=== PATIENT | female | born 1955 | race Caucasian/White ===

== ENCOUNTER 2017-03-24 10:02 | Emergency (ER) | payer BC, OTHER ==
[~2017-03-24] VITALS: Ht 170.2 cm; Wt 113.4 kg
[~2017-03-24 10:02] MED LIST: ATEN-60 PO; FURO20TA3 PO; MELO-86 PO
[2017-03-24 10:45] VITALS: BP 142/102
[2017-03-24] MEDS ORDERED: KETOROLAC TROMETH 60MG/2ML VIAL IM ONE (12:00)
== END 2017-03-24 13:04 | disposition home or self-care (01) ==
LOC: EDBD 10:02 → ER 10:02
DX: S83.92XA Sprain of unspecified site of left knee, initial encounter (principal); S46.911A Strain of unspecified muscle, fascia and tendon at shoulder and upper arm level, right arm, initial encounter; J45.909 Unspecified asthma, uncomplicated; I10 Essential (primary) hypertension; M19.90 Unspecified osteoarthritis, unspecified site; Z90.49 Acquired absence of other specified parts of digestive tract; Z90.710 Acquired absence of both cervix and uterus; W10.8XXA Fall (on) (from) other stairs and steps, initial encounter; Y93.01 Activity, walking, marching and hiking; Y99.8 Other external cause status; Y92.89 Other specified places as the place of occurrence of the external cause; Z88.6 Allergy status to analgesic agent; Z88.8 Allergy status to other drugs, medicaments and biological substances
CPT/HCPCS: 73110; 73562; 96372; 99284; J1885

== ENCOUNTER 2020-05-05 17:47 | Observation (INO) | payer OTHER, MEDICAID ==
[~2020-05-05] VITALS: Ht 170.2 cm; Wt 118.6 kg
[~2020-05-05 17:47] MED LIST changes: -MELO-86 PO; +MELO1TAB56 PO
[2020-05-05 21:00] LABS: Hemoglobin 12.2 g/dL (12.2-16.2); Monocytes # (auto) 0.5 10 ^3/uL (0-1.3); Neutrophils # (auto) 10.9 10 ^3/uL (1.6-8.6); Red Cell Distribution Width 18.5 % (11.8-14.3); White Blood Cell 11.9 10^3/uL (4.4-10.8)
[2020-05-05] MEDS ORDERED: PIPERACILLIN-TAZO 4.5GM 100 ML IV ONE (21:00)
[2020-05-05] MEDS ORDERED: LACTATED RINGER'S 1,000 ML IV ONE (21:00)
[2020-05-05] MEDS ORDERED: HYDROcodone-ACET 10/325MG TAB PO ONE (21:00)
[2020-05-05] MEDS ORDERED: ACETAMINOPHEN 325 MG TAB PO ONE (21:00)
[2020-05-05] MEDS ORDERED: dilTIAZem 25 MG/5 ML VIAL IV ONE ×2 (21:00→21:45)
[2020-05-05 21:02] LABS: Basophils # (auto) 0.1 10 ^3/uL (0-0.2); Basophils % (auto) 0.6 % (0.0-2.0); Eosinophils # (auto) 0 10 ^3/uL (0-0.8); Eosinophils % (auto) 0.1 % (0.0-7.0); Hematocrit 37.4 % (36.0-46.0); Lymphocytes # (auto) 0.3 10 ^3/uL (0.4-5.4); Lymphocytes % (auto) 2.8 % (10.0-50.0); Mean Corpuscular Hemoglobin 26.8 pg (28.0-32.0); Mean Corpuscular Hgb Conc. 32.7 g/dL (32.0-36.0); Monocytes % (auto) 4.2 % (0.0-12.0); Neutrophils % (auto) 92.3 % (37.0-80.0); Nucleated Red Blood Cells % 0.1 %; Platelet Count (auto) 181 10^3/uL (140-450); Red Blood Cells 4.56 10^6/uL (4.0-5.20)
[2020-05-05 21:09] LABS: Urine Bacteria MANY /hpf (None Seen); Urine Blood 1+ /uL (Negative); Urine Hyaline Cast FEW /lpf (0 - 2); Urine Mucus FEW (None Seen); Urine Specific Gravity 1.016 (1.001-1.035); Urine WBC 655 /hpf (0 - 5); Urine WBC Clumps PRESENT /hpf (None Seen)
[2020-05-05 21:26] LABS: Albumin 2.5 g/dL (3.4-5.0); Calcium 8.7 mg/dL (8.5-10.1); Magnesium 1.5 mg/dL (1.6-2.6); Potassium 3.3 mmol/L (3.5-5.1)
[2020-05-05 21:30] LABS: BUN/Creatinine Ratio 20.3; Bilirubin, Total 1.6 mg/dL (0.2-1.0); Total Protein 6.6 g/dL (6.4-8.2)
[2020-05-05 21:32] LABS: INR 1.18 (0.9-1.15); Partial Thromboplastin Time 25.4 sec (23.0-31.2)
[2020-05-05 21:36] LABS: Lactate Dehydrogenase 247 U/L (84-246)
[2020-05-05 21:37] LABS: CRP High Sensitivity > 19.0 mg/dL (< 0.3)
[2020-05-05] MEDS ORDERED: POTASSIUM EFFERVESENT TAB 25 MEQ PO ONE (22:45)
[2020-05-05] MEDS ORDERED: ENOXAPARIN SOD 120 MG/0.8 ML SYRINGE SC ONE (23:00)
[2020-05-05] MEDS ORDERED: KETOROLAC TROMETH 30 MG/ML 1ML VIAL IV ONE (23:00)
[2020-05-05] MEDS: MAGNESIUM SULFATE 1GM/100ML 100 ML IV SCH (23:44)
[2020-05-06] MEDS ORDERED: SODIUM CHLORIDE 0.9% 1,000 ML IV ONE
[2020-05-06] MEDS ORDERED: NITROGLYCERIN 0.4 MG SL TAB SL PRN
[2020-05-06] MEDS: MAGNESIUM SULFATE 1GM/100ML 100 ML IV SCH (00:48)
[2020-05-06] MEDS ORDERED: ACETAMINOPHEN 500 MG TAB PO ONE ×2 (05:15→11:45)
[2020-05-06 07:10] LABS: Basophils # (auto) 0 10 ^3/uL (0-0.2); Basophils % (auto) 0.2 % (0.0-2.0); Eosinophils # (auto) 0 10 ^3/uL (0-0.8); Hemoglobin 11.8 g/dL (12.2-16.2); Lymphocytes # (auto) 0.2 10 ^3/uL (0.4-5.4); Monocytes # (auto) 0.3 10 ^3/uL (0-1.3); White Blood Cell 7.5 10^3/uL (4.4-10.8)
[2020-05-06 07:15] LABS: Eosinophils % (auto) 0.2 % (0.0-7.0); Hematocrit 35.7 % (36.0-46.0); Lymphocytes % (auto) 2.6 % (10.0-50.0); Mean Corpuscular Volume 81.7 fL (80.0-100.0); Monocytes % (auto) 3.7 % (0.0-12.0); Neutrophils % (auto) 93.3 % (37.0-80.0); Platelet Count (auto) 161 10^3/uL (140-450); Red Blood Cells 4.37 10^6/uL (4.0-5.20)
[2020-05-06 07:27] LABS: Albumin 2.1 g/dL (3.4-5.0); Calcium 8.3 mg/dL (8.5-10.1); Potassium 3.7 mmol/L (3.5-5.1)
[2020-05-06 07:30] LABS: BUN/Creatinine Ratio 21.8; Bilirubin, Total 1.7 mg/dL (0.2-1.0); Total Protein 5.8 g/dL (6.4-8.2)
[2020-05-06] MEDS: PIPERACILLIN-TAZOB 3.375GM 100 ML IV SCH ×3 (07:48→18:44)
[2020-05-06] MEDS: ENOXAPARIN SOD 40 MG/0.4 ML SYRINGE SC SCH ×2 (09:59→22:07)
[2020-05-06] MEDS ORDERED: levoFLOXacin 500MG 100 ML IV SCH (10:00)
[2020-05-06] MEDS ORDERED: ACETAMINOPHEN 500 MG TAB PO PRN (11:45)
[2020-05-06 13:49] VITALS: BP 131/52
[2020-05-06] MEDS ORDERED: ALPR0.25 PO (16:08)
[2020-05-06 16:49] VITALS: BP 161/68
[2020-05-06] MEDS ORDERED: hydrALAZINE HCL 20 MG/ML VL IV PRN (18:00)
[2020-05-06] MEDS ORDERED: ALPRAZolam 0.25 MG TAB PO PRN (18:00)
[2020-05-06] MEDS: HYDROcodone-ACET 10/325MG TAB PO PRN (18:40)
[2020-05-06] MEDS: ONDANSETRON HCL 4 MG/2 ML VIAL IV PRN (18:44)
[2020-05-06 20:00] VITALS: BP 124/63
[2020-05-06 22:00] VITALS: BP 124/63
[2020-05-06] MEDS: METOPROLOL TARTRATE 25 MG TAB PO SCH (22:08)
[2020-05-07] MEDS: PIPERACILLIN-TAZOB 3.375GM 100 ML IV SCH ×3 (00:49→12:13)
[2020-05-07] MEDS: HYDROcodone-ACET 10/325MG TAB PO PRN (02:00)
[2020-05-07 05:00] VITALS: BP 130/50
[2020-05-07] MEDS: ONDANSETRON HCL 4 MG/2 ML VIAL IV PRN (07:17)
[2020-05-07] MEDS: METOPROLOL TARTRATE 25 MG TAB PO SCH (08:05)
[2020-05-07 09:00] VITALS: BP 139/47
[2020-05-07 09:39] LABS: Basophils # (auto) 0 10 ^3/uL (0-0.2); Eosinophils # (auto) 0 10 ^3/uL (0-0.8); Eosinophils % (auto) 0.4 % (0.0-7.0); Lymphocytes # (auto) 0.2 10 ^3/uL (0.4-5.4); Monocytes # (auto) 0.2 10 ^3/uL (0-1.3); Red Cell Distribution Width 18.9 % (11.8-14.3)
[2020-05-07 09:41] LABS: Basophils % (auto) 0.7 % (0.0-2.0); Hematocrit 31.9 % (36.0-46.0); Hemoglobin 10.6 g/dL (12.2-16.2); Lymphocytes % (auto) 5.4 % (10.0-50.0); Mean Corpuscular Hemoglobin 27.2 pg (28.0-32.0); Mean Corpuscular Hgb Conc. 33.2 g/dL (32.0-36.0); Mean Corpuscular Volume 81.8 fL (80.0-100.0); Monocytes % (auto) 4.9 % (0.0-12.0); Neutrophils # (auto) 3.4 10 ^3/uL (1.6-8.6); Neutrophils % (auto) 88.6 % (37.0-80.0); Platelet Count (auto) 150 10^3/uL (140-450); White Blood Cell 3.8 10^3/uL (4.4-10.8)
[2020-05-07 09:55] LABS: Calcium 8.3 mg/dL (8.5-10.1); Potassium 3.6 mmol/L (3.5-5.1)
[2020-05-07 09:58] LABS: Albumin 1.7 g/dL (3.4-5.0); BUN/Creatinine Ratio 18.2
[2020-05-07 10:04] LABS: Bilirubin, Total 1.1 mg/dL (0.2-1.0); Total Protein 5.4 g/dL (6.4-8.2)
[2020-05-07 13:00] VITALS: BP 135/62
[2020-05-07] MEDS ORDERED: ALBUTEROL SULF 2.5 MG/0.5ML(0.5%) NEB SOLN NEB PRN (13:15)
[2020-05-07 16:57] VITALS: BP 135/62
[2020-05-07] MEDS ORDERED: RIVAROXABAN 20 MG TAB PO SCH (18:00)
== END 2020-05-07 18:15 | disposition home or self-care (01) ==
LOC: ER 17:47 → EDBD 17:47 → UNDOADMOB 23:56 → TELE 23:56 → TELE-WESTW 05-06 13:00 → TELE 05-06 13:00 → TELE-WESTW 05-07 01:52 → UNDODISOB 05-07 18:15
PROVIDERS: ADMIT Internal Medicine; ATTEND Internal Medicine
DX: A41.9 Sepsis, unspecified organism (principal); Z20.828 Contact with and (suspected) exposure to other viral communicable diseases; R05 Cough; N39.0 Urinary tract infection, site not specified; I48.91 Unspecified atrial fibrillation; M19.90 Unspecified osteoarthritis, unspecified site; D84.9 Immunodeficiency, unspecified; E11.9 Type 2 diabetes mellitus without complications; E66.01 Morbid (severe) obesity due to excess calories; I11.0 Hypertensive heart disease with heart failure; I50.9 Heart failure, unspecified; J45.909 Unspecified asthma, uncomplicated; Z85.3 Personal history of malignant neoplasm of breast; Z85.118 Personal history of other malignant neoplasm of bronchus and lung; Z90.710 Acquired absence of both cervix and uterus; Z79.01 Long term (current) use of anticoagulants; Z79.899 Other long term (current) drug therapy; Z88.5 Allergy status to narcotic agent; Z88.8 Allergy status to other drugs, medicaments and biological substances; Z68.41 Body mass index [BMI] 40.0-44.9, adult
CPT/HCPCS: 36415; 71045; 80053; 81001; 82728; 83605; 83615; 83735; 83880; 84484; 85025; 85379; 85610; 85730; 86141; 87040; 87077; 87086; 87088; 87186; 87426; 93005; 93306; 94640; 96365; 96366; 96368; 96372; 96375; 96376; 99291; G0378; J0360; J1650; J1885; J2405; J2543; J3475; J7030; U0003

== ENCOUNTER 2020-08-11 14:59 | Emergency (ER) | payer MEDICAID, OTHER ==
[~2020-08-11] VITALS: Ht 160 cm; Wt 136.1 kg
[~2020-08-11 14:59] MED LIST changes: +ALPR0.25 PO
[2020-08-11] MEDS ORDERED: MORPHINE SULFATE 4 MG/ML SYR/VIAL IV ONE (15:15)
[2020-08-11] MEDS ORDERED: HYDROmorphone HCL 2 MG/ML VL IV ONE (15:15)
[2020-08-11] MEDS ORDERED: ONDANSETRON HCL 4 MG/2 ML VIAL IV ONE (15:15)
[2020-08-11 16:14] LABS: Eosinophils # (auto) 0.1 10 ^3/uL (0-0.8); Eosinophils % (auto) 1.4 % (0.0-7.0); Hemoglobin 10.8 g/dL (12.2-16.2); Lymphocytes # (auto) 1.4 10 ^3/uL (0.4-5.4); Monocytes # (auto) 0.7 10 ^3/uL (0-1.3)
[2020-08-11 16:16] LABS: Basophils # (auto) 0.1 10 ^3/uL (0-0.2); Basophils % (auto) 0.9 % (0.0-2.0); Hematocrit 33.1 % (36.0-46.0); Lymphocytes % (auto) 15.6 % (10.0-50.0); Mean Corpuscular Hemoglobin 26.9 pg (28.0-32.0); Mean Corpuscular Hgb Conc. 32.6 g/dL (32.0-36.0); Mean Corpuscular Volume 82.5 fL (80.0-100.0); Monocytes % (auto) 7.9 % (0.0-12.0); Neutrophils # (auto) 6.7 10 ^3/uL (1.6-8.6); Neutrophils % (auto) 74.2 % (37.0-80.0); Platelet Count (auto) 436 10^3/uL (140-450); Red Blood Cells 4.02 10^6/uL (4.0-5.20); Red Cell Distribution Width 16.1 % (11.8-14.3)
[2020-08-11 18:09] LABS: Anion Gap 7 (5-15); BUN/Creatinine Ratio 18.1; Blood Urea Nitrogen 15 mg/dL (7-18); Carbon Dioxide 26 mmol/L (21-32); Chloride 106 mmol/L (98-107); GFR African American 88 mL/min; GFR Non-African American 73 mL/min; Glucose 88 mg/dL (74-106); Potassium 3.4 mmol/L (3.5-5.1); Sodium 139 mmol/L (136-145)
[2020-08-11 18:10] LABS: Alanine Aminotransferase 17 U/L (13-56); Albumin 2.6 g/dL (3.4-5.0); Alkaline Phosphatase 88 U/L (45-117); Aspartate Aminotransferase 17 U/L (15-37); Bilirubin, Total 0.4 mg/dL (0.2-1.0); Calcium 8.6 mg/dL (8.5-10.1); Total Protein 6.9 g/dL (6.4-8.2)
[2020-08-11 18:37] VITALS: BP 136/42
[2020-08-11 21:26] LABS: Urine Bacteria NONE SEEN /hpf (None Seen); Urine Blood 2+ /uL (Negative); Urine Hyaline Cast FEW /lpf (0 - 2); Urine Mucus FEW (None Seen); Urine Specific Gravity 1.021 (1.001-1.035); Urine WBC 6 /hpf (0 - 5)
== END 2020-08-11 18:31 | disposition home or self-care (01) ==
LOC: ER 14:59 → EDBD 14:59 → ER 18:31
DX: I21.9 Acute myocardial infarction, unspecified (principal); I10 Essential (primary) hypertension; Z90.49 Acquired absence of other specified parts of digestive tract; Z90.710 Acquired absence of both cervix and uterus; Z79.899 Other long term (current) drug therapy; Z88.5 Allergy status to narcotic agent; Z88.8 Allergy status to other drugs, medicaments and biological substances
CPT/HCPCS: 36415; 71045; 80053; 81001; 83880; 84484; 85025; 85379; 93005; 96374; 99285; J2405

== ENCOUNTER 2020-09-17 11:44 | Emergency (ER) | payer OTHER ==
[~2020-09-17] VITALS: Ht 170.2 cm; Wt 115.7 kg
[2020-09-17 12:14] LABS: Eosinophils # (auto) 0.1 10 ^3/uL (0-0.8); Lymphocytes # (auto) 1.4 10 ^3/uL (0.4-5.4); Monocytes # (auto) 0.5 10 ^3/uL (0-1.3); Red Blood Cells 3.39 10^6/uL (4.0-5.20)
[2020-09-17 12:16] LABS: Basophils # (auto) 0.1 10 ^3/uL (0-0.2); Basophils % (auto) 1.1 % (0.0-2.0); Hematocrit 26.2 % (36.0-46.0); Hemoglobin 8.2 g/dL (12.2-16.2); Lymphocytes % (auto) 15.1 % (10.0-50.0); Mean Corpuscular Hemoglobin 24.3 pg (28.0-32.0); Mean Corpuscular Hgb Conc. 31.4 g/dL (32.0-36.0); Mean Corpuscular Volume 77.3 fL (80.0-100.0); Monocytes % (auto) 5.5 % (0.0-12.0); Neutrophils # (auto) 7.2 10 ^3/uL (1.6-8.6); Neutrophils % (auto) 77.3 % (37.0-80.0); Red Cell Distribution Width 16.9 % (11.8-14.3); White Blood Cell 9.4 10^3/uL (4.4-10.8)
[2020-09-17 12:28] VITALS: BP 125/81
[2020-09-17 12:35] LABS: Alanine Aminotransferase 16 U/L (13-56); Albumin 2.6 g/dL (3.4-5.0); Anion Gap 10 (5-15); Aspartate Aminotransferase 15 U/L (15-37); BUN/Creatinine Ratio 20.2; Blood Urea Nitrogen 20 mg/dL (7-18); Calcium 8.6 mg/dL (8.5-10.1); Carbon Dioxide 26 mmol/L (21-32); Chloride 104 mmol/L (98-107); GFR African American 72 mL/min; GFR Non-African American 59 mL/min; Glucose 96 mg/dL (74-106); Magnesium 1.8 mg/dL (1.6-2.6); Potassium 3.1 mmol/L (3.5-5.1); Sodium 140 mmol/L (136-145)
[2020-09-17 12:40] LABS: Alkaline Phosphatase 87 U/L (45-117); Bilirubin, Total 0.5 mg/dL (0.2-1.0); Total Protein 6.9 g/dL (6.4-8.2)
[2020-09-17 14:48] LABS: Urine Bacteria FEW /hpf (None Seen); Urine Blood TRACE /uL (Negative); Urine WBC 14 /hpf (0 - 5)
[2020-09-17] MEDS ORDERED: cefTRIAXone 1GM/50ML D5W 50 ML IV ONE (15:30)
[2020-09-17] MEDS ORDERED: cefTRIAXone SOD 1,000 MG VL ONE (15:38)
== END 2020-09-17 17:19 | disposition home or self-care (01) ==
LOC: ER 11:44 → EDBD 11:44 → ER 17:19
DX: R07.89 Other chest pain (principal); R00.2 Palpitations; J45.909 Unspecified asthma, uncomplicated; R42 Dizziness and giddiness; Z88.6 Allergy status to analgesic agent; Z90.49 Acquired absence of other specified parts of digestive tract; Z90.710 Acquired absence of both cervix and uterus
CPT/HCPCS: 36415; 71045; 80053; 81001; 83735; 83880; 84484; 85025; 85379; 93005; 96365; 99285; J0696

== ENCOUNTER 2020-11-09 09:47 | Inpatient (IN) | payer OTHER ==
[~2020-11-09] VITALS: Ht 170.2 cm; Wt 121.8 kg
[2020-11-09] MEDS ORDERED: SODIUM CHLORIDE 0.9% 1,000 ML IV ONE (10:15)
[2020-11-09 10:52] LABS: Basophils # (auto) 0.1 10 ^3/uL (0-0.2); Eosinophils # (auto) 0.2 10 ^3/uL (0-0.8); Eosinophils % (auto) 2.7 % (0.0-7.0); Lymphocytes # (auto) 1.1 10 ^3/uL (0.4-5.4); Monocytes # (auto) 0.5 10 ^3/uL (0-1.3)
[2020-11-09 10:54] LABS: Basophils % (auto) 1.1 % (0.0-2.0); Hematocrit 20.7 % (36.0-46.0); Lymphocytes % (auto) 16.2 % (10.0-50.0); Mean Corpuscular Hemoglobin 19.9 pg (28.0-32.0); Mean Corpuscular Hgb Conc. 28.3 g/dL (32.0-36.0); Mean Corpuscular Volume 70.2 fL (80.0-100.0); Monocytes % (auto) 7.8 % (0.0-12.0); Neutrophils % (auto) 72.2 % (37.0-80.0); Nucleated Red Blood Cells % 0.4 %; Platelet Count (auto) 425 10^3/uL (140-450); Red Blood Cells 2.95 10^6/uL (4.0-5.20); White Blood Cell 6.9 10^3/uL (4.4-10.8)
[2020-11-09 10:57] LABS: Hemoglobin 5.9 g/dL (12.2-16.2)
[2020-11-09 11:09] LABS: Urine Bacteria FEW /hpf (None Seen); Urine Blood Negative /uL (Negative); Urine Specific Gravity 1.012 (1.001-1.035); Urine WBC 29 /hpf (0 - 5)
[2020-11-09 11:10] LABS: Alanine Aminotransferase 15 U/L (13-56); Albumin 2.5 g/dL (3.4-5.0); Anion Gap 5 (5-15); Aspartate Aminotransferase 16 U/L (15-37); Blood Urea Nitrogen 12 mg/dL (7-18); Calcium 8.7 mg/dL (8.5-10.1); Carbon Dioxide 27 mmol/L (21-32); Chloride 106 mmol/L (98-107); Glucose 114 mg/dL (74-106); Potassium 3.9 mmol/L (3.5-5.1); Sodium 138 mmol/L (136-145)
[2020-11-09 11:12] LABS: INR 1.34 (0.9-1.15); Partial Thromboplastin Time 31.4 sec (23.0-31.2)
[2020-11-09 11:14] LABS: Alkaline Phosphatase 76 U/L (45-117); Bilirubin, Total 0.5 mg/dL (0.2-1.0); GFR African American 78 mL/min; GFR Non-African American 65 mL/min; Total Protein 6.4 g/dL (6.4-8.2)
[2020-11-09] MEDS ORDERED: NITROGLYCERIN 0.4 MG SL TAB SL PRN (15:30)
[2020-11-09] MEDS ORDERED: PANTOPRAZOLE 40mg/50ML NS AE 50 ML IV ONE (15:30)
[2020-11-09] MEDS ORDERED: MORPHINE SULF INJ 2 MG/ML SYRINGE 1ML IV PRN (15:30)
[2020-11-09 18:40] VITALS: BP 154/62
[2020-11-09] MEDS ORDERED: ALPR0.5T PO (19:11)
[2020-11-09] MEDS ORDERED: SERT25TA84 PO (19:11)
[2020-11-09] MEDS ORDERED: METO25TA5 PO (19:11)
[2020-11-09] MEDS ORDERED: LOSA-69 PO (19:11)
[2020-11-09] MEDS ORDERED: RIVA20TA PO (19:11)
[2020-11-09 22:00] VITALS: BP 152/57
[2020-11-09 23:29] LABS: Hematocrit 23.2 % (36.0-46.0)
[2020-11-09] MEDS: ALPRAZolam 0.5 MG TAB PO PRN (23:33)
[2020-11-10] VITALS (10 sets, daily range): BP systolic 134–156; BP diastolic 47–80
[2020-11-10 06:17] LABS: Hematocrit 23.4 % (36.0-46.0); Hemoglobin 7.3 g/dL (12.2-16.2)
[2020-11-10 06:26] LABS: Albumin 2.5 g/dL (3.4-5.0); Calcium 8.1 mg/dL (8.5-10.1); Potassium 3.8 mmol/L (3.5-5.1)
[2020-11-10 06:30] LABS: BUN/Creatinine Ratio 11.8; Bilirubin, Total 0.7 mg/dL (0.2-1.0); Total Protein 5.8 g/dL (6.4-8.2)
[2020-11-10] MEDS ORDERED: NITROGLYCERIN 0.4 MG SL TAB SL PRN (10:45)
[2020-11-10 15:14] LABS: Hemoglobin 7.5 g/dL (12.2-16.2)
[2020-11-10 15:16] LABS: Hematocrit 24.7 % (36.0-46.0)
[2020-11-10] MEDS: ALPRAZolam 0.5 MG TAB PO PRN (22:18)
[2020-11-11] VITALS (11 sets, daily range): BP systolic 133–164; BP diastolic 53–71
[2020-11-11 05:30] LABS: Basophils # (auto) 0 10 ^3/uL (0-0.2); Eosinophils # (auto) 0.2 10 ^3/uL (0-0.8); Lymphocytes # (auto) 1.2 10 ^3/uL (0.4-5.4); Mean Corpuscular Hemoglobin 22.7 pg (28.0-32.0); Neutrophils # (auto) 3.3 10 ^3/uL (1.6-8.6); Nucleated Red Blood Cells % 0.3 %
[2020-11-11 05:32] LABS: Eosinophils % (auto) 3.8 % (0.0-7.0); Hematocrit 22.2 % (36.0-46.0); Lymphocytes % (auto) 23.3 % (10.0-50.0); Mean Corpuscular Hgb Conc. 31.4 g/dL (32.0-36.0); Mean Corpuscular Volume 72.1 fL (80.0-100.0); Monocytes # (auto) 0.4 10 ^3/uL (0-1.3); Monocytes % (auto) 8.5 % (0.0-12.0); Neutrophils % (auto) 63.4 % (37.0-80.0); Platelet Count (auto) 373 10^3/uL (140-450); Red Blood Cells 3.08 10^6/uL (4.0-5.20); White Blood Cell 5.2 10^3/uL (4.4-10.8)
[2020-11-11 05:44] LABS: Albumin 2.5 g/dL (3.4-5.0); Calcium 8.2 mg/dL (8.5-10.1); Potassium 3.7 mmol/L (3.5-5.1)
[2020-11-11 05:46] LABS: BUN/Creatinine Ratio 8.4
[2020-11-11 05:48] LABS: Bilirubin, Total 0.7 mg/dL (0.2-1.0); Total Protein 5.7 g/dL (6.4-8.2)
[2020-11-11 06:21] LABS: Red Cell Distribution Width 23.7 % (11.8-14.3)
[2020-11-11] MEDS ORDERED: GOLYTELY 4L KIT PO ONE (09:45)
[2020-11-11] MEDS ORDERED: ALPRAZolam 0.5 MG TAB PO PRN (10:45)
[2020-11-11] MEDS: HYDROcodone-ACET 5/325MG TAB PO PRN (15:17)
[2020-11-11] MEDS: PANTOPRAZOLE 40 MG/10 ML VIAL INJ IV SCH (22:01)
[2020-11-12] VITALS (10 sets, daily range): BP systolic 121–155; BP diastolic 33–87
[2020-11-12 07:50] LABS: Albumin 2.5 g/dL (3.4-5.0); BUN/Creatinine Ratio 7.3; Calcium 8.3 mg/dL (8.5-10.1); Potassium 3.7 mmol/L (3.5-5.1)
[2020-11-12 08:05] LABS: Total Protein 5.9 g/dL (6.4-8.2)
[2020-11-12] MEDS: PANTOPRAZOLE 40 MG/10 ML VIAL INJ IV SCH ×2 (09:58→22:58)
[2020-11-12] MEDS ORDERED: ONDANSETRON HCL 4 MG/2 ML VIAL IV PRN ×2 (10:00→11:30)
[2020-11-12] MEDS ORDERED: fentaNYL CITRATE 100 MCG/2 ML VL ONE (10:49)
[2020-11-12] MEDS ORDERED: MIDAZOLAM HCL 1MG/1ML-2 ML VIAL ONE (10:50)
[2020-11-12] MEDS ORDERED: LIDOCAINE 2% (LOCAL ANESTH.) PF 5ml SDV ONE (10:50)
[2020-11-12] MEDS ORDERED: PROPOFOL 10 MG/ML 20 ML IV ONE (10:50)
[2020-11-12] MEDS ORDERED: ONDANSETRON HCL 4 MG/2 ML VIAL ONE (10:50)
[2020-11-12 15:04] LABS: Hematocrit 30.3 % (36.0-46.0)
[2020-11-12] MEDS ORDERED: HYDROCORTISONE ACET 25 MG RECTAL SUPP PR SCH (18:00)
[2020-11-12 22:01] LABS: Basophils # (auto) 0.1 10 ^3/uL (0-0.2); Basophils % (auto) 1.1 % (0.0-2.0); Eosinophils # (auto) 0.2 10 ^3/uL (0-0.8); Eosinophils % (auto) 2.8 % (0.0-7.0); Hematocrit 29.1 % (36.0-46.0); Hemoglobin 9.1 g/dL (12.2-16.2); Lymphocytes # (auto) 0.9 10 ^3/uL (0.4-5.4); Lymphocytes % (auto) 12.8 % (10.0-50.0); Mean Corpuscular Hemoglobin 23.5 pg (28.0-32.0); Mean Corpuscular Hgb Conc. 31.1 g/dL (32.0-36.0); Mean Corpuscular Volume 75.5 fL (80.0-100.0); Monocytes # (auto) 0.6 10 ^3/uL (0-1.3); Monocytes % (auto) 8.3 % (0.0-12.0); Neutrophils # (auto) 5.5 10 ^3/uL (1.6-8.6); Nucleated Red Blood Cells % 0.1 %; Platelet Count (auto) 337 10^3/uL (140-450); Red Blood Cells 3.85 10^6/uL (4.0-5.20); White Blood Cell 7.3 10^3/uL (4.4-10.8)
[2020-11-12 22:03] LABS: Red Cell Distribution Width 24.3 % (11.8-14.3)
[2020-11-12] MEDS: HYDROcodone-ACET 5/325MG TAB PO PRN (22:58)
[2020-11-13 04:46] VITALS: BP 107/49
[2020-11-13 04:47] VITALS: BP 113/48
[2020-11-13 06:45] LABS: Basophils # (auto) 0.1 10 ^3/uL (0-0.2); Basophils % (auto) 1.3 % (0.0-2.0); Eosinophils # (auto) 0.3 10 ^3/uL (0-0.8); Eosinophils % (auto) 4.3 % (0.0-7.0); Hematocrit 27.6 % (36.0-46.0); Hemoglobin 8.5 g/dL (12.2-16.2); Lymphocytes # (auto) 1.3 10 ^3/uL (0.4-5.4); Mean Corpuscular Hemoglobin 23.5 pg (28.0-32.0); Mean Corpuscular Hgb Conc. 30.8 g/dL (32.0-36.0); Mean Corpuscular Volume 76.1 fL (80.0-100.0); Monocytes # (auto) 0.6 10 ^3/uL (0-1.3); Neutrophils # (auto) 3.7 10 ^3/uL (1.6-8.6); Neutrophils % (auto) 62.4 % (37.0-80.0); Nucleated Red Blood Cells % 0.2 %; Platelet Count (auto) 340 10^3/uL (140-450); Red Blood Cells 3.63 10^6/uL (4.0-5.20); Red Cell Distribution Width 24.3 % (11.8-14.3); White Blood Cell 5.9 10^3/uL (4.4-10.8)
[2020-11-13 06:48] LABS: Albumin 2.2 g/dL (3.4-5.0)
[2020-11-13 06:56] LABS: Calcium 7.7 mg/dL (8.5-10.1); Total Protein 5.6 g/dL (6.4-8.2)
[2020-11-13] MEDS ORDERED: HYDROCORTISONE 2.5% TOPICAL CREAM 30GM TUBE PR ONE (07:45)
[2020-11-13 08:55] VITALS: BP 128/62
[2020-11-13] MEDS: PANTOPRAZOLE 40 MG/10 ML VIAL INJ IV SCH (09:50)
[2020-11-13] MEDS ORDERED: LOSARTAN POTASSIUM 50 MG TAB PO SCH (10:00)
[2020-11-13] MEDS ORDERED: FUROSEMIDE 20 MG TAB PO SCH (10:00)
[2020-11-13] MEDS ORDERED: ATENOLOL 25 MG TAB PO SCH (10:00)
== END 2020-11-13 10:20 | disposition home or self-care (01) | DRG 393 ==
LOC: EDBD 09:47 → ER 09:47 → INTOOBSV 15:17 → TELE 15:17 → TELE-CENTR 18:07 → OBSVTOIN 11-10 10:35
PROVIDERS: ADMIT Hospitalist; ATTEND Hospitalist
PROC: 30233N1 Transfusion of Nonautologous Red Blood Cells into Peripheral Vein, Percutaneous Approach (ICD-10-PCS; 2020-11-09)
PROC: 05HF33Z Insertion of Infusion Device into Left Cephalic Vein, Percutaneous Approach (ICD-10-PCS; 2020-11-09)
PROC: B54NZZA Ultrasonography of Left Upper Extremity Veins, Guidance (ICD-10-PCS; 2020-11-09)
PROC: 0DBH8ZX Excision of Cecum, Via Natural or Artificial Opening Endoscopic, Diagnostic (ICD-10-PCS; principal; 2020-11-12 10:49)
DX: K63.5 Polyp of colon (principal); K57.31 Diverticulosis of large intestine without perforation or abscess with bleeding; I48.20 Chronic atrial fibrillation, unspecified; D62 Acute posthemorrhagic anemia; N20.0 Calculus of kidney; I10 Essential (primary) hypertension; E66.01 Morbid (severe) obesity due to excess calories; K64.8 Other hemorrhoids; Z20.822 Contact with and (suspected) exposure to COVID-19; Z79.01 Long term (current) use of anticoagulants; Z82.49 Family history of ischemic heart disease and other diseases of the circulatory system; Z82.5 Family history of asthma and other chronic lower respiratory diseases; Z90.13 Acquired absence of bilateral breasts and nipples; Z90.49 Acquired absence of other specified parts of digestive tract; Z90.710 Acquired absence of both cervix and uterus; Z88.5 Allergy status to narcotic agent; Z88.8 Allergy status to other drugs, medicaments and biological substances; Z68.39 Body mass index [BMI] 39.0-39.9, adult
CPT/HCPCS: 36415; 36430; 71045; 74176; 80053; 81001; 83880; 84484; 85014; 85018; 85025; 85610; 85730; 86850; 86900; 86901; 86920; 87426; 93005; 94762; 99291; C9113; G0378; J2001; J2250; J2405; J2704

== ENCOUNTER 2021-03-04 19:41 | Observation (INO) | payer OTHER ==
[~2021-03-04] VITALS: Ht 160 cm; Wt 90.7 kg
[~2021-03-04 19:41] MED LIST changes: +ALPR0.5T PO; +LOSA-69 PO; +METO25TA5 PO; +RIVA20TA PO; +SERT25TA84 PO
[2021-03-04 20:39] LABS: Basophils # (auto) 0.1 10 ^3/uL (0-0.2); Eosinophils # (auto) 0.2 10 ^3/uL (0-0.8); Hemoglobin 9.6 g/dL (12.2-16.2); Monocytes # (auto) 0.6 10 ^3/uL (0-1.3); Nucleated Red Blood Cells % 0.1 %; Red Cell Distribution Width 17.5 % (11.8-14.3); White Blood Cell 9.2 10^3/uL (4.4-10.8)
[2021-03-04 20:42] LABS: Basophils % (auto) 0.8 % (0.0-2.0); Eosinophils % (auto) 2.5 % (0.0-7.0); Hematocrit 30.8 % (36.0-46.0); Lymphocytes # (auto) 1.3 10 ^3/uL (0.4-5.4); Lymphocytes % (auto) 13.9 % (10.0-50.0); Mean Corpuscular Hgb Conc. 31.2 g/dL (32.0-36.0); Mean Corpuscular Volume 73.8 fL (80.0-100.0); Monocytes % (auto) 6.3 % (0.0-12.0); Neutrophils # (auto) 7.1 10 ^3/uL (1.6-8.6); Neutrophils % (auto) 76.5 % (37.0-80.0); Red Blood Cells 4.17 10^6/uL (4.0-5.20)
[2021-03-04 20:58] LABS: Albumin 2.7 g/dL (3.4-5.0); Calcium 9.1 mg/dL (8.5-10.1)
[2021-03-04 21:01] LABS: BUN/Creatinine Ratio 12.9; Bilirubin, Total 0.4 mg/dL (0.2-1.0); Total Protein 7.3 g/dL (6.4-8.2)
[2021-03-04] MEDS ORDERED: SODIUM CHLORIDE 0.9% 1,000 ML IV ONE (22:00)
[2021-03-04 23:55] LABS: Basophils # (auto) 0.1 10 ^3/uL (0-0.2); Basophils % (auto) 1.1 % (0.0-2.0); Eosinophils # (auto) 0.2 10 ^3/uL (0-0.8)
[2021-03-04 23:56] LABS: Eosinophils % (auto) 2.3 % (0.0-7.0); Hematocrit 26.9 % (36.0-46.0); Hemoglobin 8.3 g/dL (12.2-16.2); Lymphocytes # (auto) 1.4 10 ^3/uL (0.4-5.4); Lymphocytes % (auto) 17.7 % (10.0-50.0); Mean Corpuscular Hemoglobin 22.9 pg (28.0-32.0); Mean Corpuscular Volume 73.9 fL (80.0-100.0); Monocytes # (auto) 0.6 10 ^3/uL (0-1.3); Monocytes % (auto) 7.6 % (0.0-12.0); Neutrophils # (auto) 5.5 10 ^3/uL (1.6-8.6); Neutrophils % (auto) 71.3 % (37.0-80.0); Red Blood Cells 3.64 10^6/uL (4.0-5.20); Red Cell Distribution Width 17.4 % (11.8-14.3); White Blood Cell 7.7 10^3/uL (4.4-10.8)
[2021-03-05] MEDS ORDERED: NITROGLYCERIN 0.4 MG SL TAB SL PRN (00:30)
[2021-03-05] MEDS ORDERED: ONDANSETRON HCL 4 MG/2 ML VIAL IV PRN (00:30)
[2021-03-05 00:52] LABS: Urine Bacteria NONE SEEN /hpf (None Seen); Urine Blood Negative /uL (Negative); Urine Specific Gravity 1.014 (1.001-1.035); Urine WBC 4 /hpf (0 - 5)
[2021-03-05 04:26] LABS: Basophils # (auto) 0.1 10 ^3/uL (0-0.2); Eosinophils # (auto) 0.2 10 ^3/uL (0-0.8); Hemoglobin 8.3 g/dL (12.2-16.2); Neutrophils # (auto) 5.2 10 ^3/uL (1.6-8.6); Nucleated Red Blood Cells % 0.1 %; White Blood Cell 7.6 10^3/uL (4.4-10.8)
[2021-03-05 04:29] LABS: Basophils % (auto) 1.1 % (0.0-2.0); Eosinophils % (auto) 2.3 % (0.0-7.0); Hematocrit 25.8 % (36.0-46.0); Lymphocytes # (auto) 1.5 10 ^3/uL (0.4-5.4); Lymphocytes % (auto) 19.7 % (10.0-50.0); Mean Corpuscular Hemoglobin 23.6 pg (28.0-32.0); Mean Corpuscular Volume 73.7 fL (80.0-100.0); Monocytes # (auto) 0.7 10 ^3/uL (0-1.3); Monocytes % (auto) 8.6 % (0.0-12.0); Neutrophils % (auto) 68.3 % (37.0-80.0); Red Cell Distribution Width 17.5 % (11.8-14.3)
[2021-03-05] MEDS ORDERED: HYDROcodone-ACET 5/325MG TAB PO PRN (04:30)
[2021-03-05 04:37] LABS: Potassium 3.8 mmol/L (3.5-5.1)
[2021-03-05 04:45] LABS: BUN/Creatinine Ratio 16.1; Calcium 8.5 mg/dL (8.5-10.1)
[2021-03-05] MEDS ORDERED: SODIUM CHLORIDE 0.9% 1,000 ML IV SCH (06:30)
[2021-03-05 06:35] LABS: Nucleated Red Blood Cells % 0.1 %; Red Cell Distribution Width 17.6 % (11.8-14.3); White Blood Cell 6.9 10^3/uL (4.4-10.8)
[2021-03-05 06:40] LABS: Basophils # (auto) 0.1 10 ^3/uL (0-0.2); Basophils % (auto) 1.2 % (0.0-2.0); Eosinophils # (auto) 0.2 10 ^3/uL (0-0.8); Eosinophils % (auto) 2.4 % (0.0-7.0); Hematocrit 25.4 % (36.0-46.0); Lymphocytes # (auto) 1.1 10 ^3/uL (0.4-5.4); Lymphocytes % (auto) 15.9 % (10.0-50.0); Mean Corpuscular Hemoglobin 23.3 pg (28.0-32.0); Mean Corpuscular Hgb Conc. 31.6 g/dL (32.0-36.0); Mean Corpuscular Volume 73.7 fL (80.0-100.0); Monocytes # (auto) 0.5 10 ^3/uL (0-1.3); Monocytes % (auto) 7.6 % (0.0-12.0); Neutrophils % (auto) 72.9 % (37.0-80.0); Red Blood Cells 3.44 10^6/uL (4.0-5.20)
[2021-03-05] MEDS ORDERED: METOPROLOL TARTRATE 25 MG TAB PO SCH (10:00)
[2021-03-05] MEDS ORDERED: ATENOLOL 25 MG TAB PO SCH (10:00)
[2021-03-05] MEDS ORDERED: LOSARTAN POTASSIUM 50 MG TAB PO SCH (10:00)
[2021-03-05] MEDS ORDERED: PANTOPRAZOLE 40 MG/10 ML VIAL INJ IV SCH (10:00)
[2021-03-05] MEDS ORDERED: FUROSEMIDE 20 MG TAB PO SCH (10:00)
[2021-03-05 10:09] LABS: Basophils # (auto) 0.1 10 ^3/uL (0-0.2); Eosinophils # (auto) 0.2 10 ^3/uL (0-0.8); Lymphocytes # (auto) 1.4 10 ^3/uL (0.4-5.4); Monocytes # (auto) 0.5 10 ^3/uL (0-1.3); Neutrophils % (auto) 69.5 % (37.0-80.0); Nucleated Red Blood Cells % 0.1 %
[2021-03-05 10:12] LABS: Basophils % (auto) 0.8 % (0.0-2.0); Eosinophils % (auto) 2.8 % (0.0-7.0); Hematocrit 26.8 % (36.0-46.0); Hemoglobin 8.4 g/dL (12.2-16.2); Mean Corpuscular Hemoglobin 23.3 pg (28.0-32.0); Mean Corpuscular Hgb Conc. 31.4 g/dL (32.0-36.0); Mean Corpuscular Volume 74.1 fL (80.0-100.0); Monocytes % (auto) 6.9 % (0.0-12.0); Neutrophils # (auto) 4.9 10 ^3/uL (1.6-8.6); Red Blood Cells 3.61 10^6/uL (4.0-5.20); Red Cell Distribution Width 17.5 % (11.8-14.3); White Blood Cell 7.1 10^3/uL (4.4-10.8)
[2021-03-05 10:53] VITALS: BP 130/78
[2021-03-05] MEDS ORDERED: ALPRAZolam 0.5 MG TAB PO SCH (22:00)
== END 2021-03-05 11:25 | disposition home or self-care (01) ==
LOC: EDBD 19:41 → ER 19:41 → TELE 03-05 00:42
PROVIDERS: ADMIT Hospitalist; ATTEND Hospitalist
DX: K64.8 Other hemorrhoids (principal); Z20.822 Contact with and (suspected) exposure to COVID-19; D50.0 Iron deficiency anemia secondary to blood loss (chronic); I10 Essential (primary) hypertension; I48.91 Unspecified atrial fibrillation; J44.9 Chronic obstructive pulmonary disease, unspecified; Z85.3 Personal history of malignant neoplasm of breast; Z90.13 Acquired absence of bilateral breasts and nipples; Z87.19 Personal history of other diseases of the digestive system; Z90.49 Acquired absence of other specified parts of digestive tract; Z90.710 Acquired absence of both cervix and uterus; Z79.899 Other long term (current) drug therapy
CPT/HCPCS: 36415; 74176; 80048; 80053; 81001; 85025; 86850; 86900; 86901; 87426; 93005; 96361; 96374; 99284; C9113; G0378; J7030

== ENCOUNTER 2022-06-24 09:34 | Emergency (ER) | payer OTHER ==
[~2022-06-24] VITALS: Ht 170.2 cm; Wt 113.6 kg
[2022-06-24] MEDS ORDERED: TRAM-297 PO (11:56)
[2022-06-24 15:11] VITALS: BP 197/72
== END 2022-06-24 15:12 | disposition home or self-care (01) ==
LOC: EDBD 09:34 → ER 09:34
DX: S92.321A Displaced fracture of second metatarsal bone, right foot, initial encounter for closed fracture (principal); J44.9 Chronic obstructive pulmonary disease, unspecified; I10 Essential (primary) hypertension; Z90.49 Acquired absence of other specified parts of digestive tract; Z90.710 Acquired absence of both cervix and uterus; Z87.891 Personal history of nicotine dependence; Z88.6 Allergy status to analgesic agent; Z88.8 Allergy status to other drugs, medicaments and biological substances; W01.0XXA Fall on same level from slipping, tripping and stumbling without subsequent striking against object, initial encounter; Y93.89 Activity, other specified; Y92.89 Other specified places as the place of occurrence of the external cause; Y99.8 Other external cause status
CPT/HCPCS: 29515; 73700